=== PATIENT | female | born 1990 | race Caucasian/White ===

== ENCOUNTER 2016-09-24 10:39 | Emergency (ER) | payer OTHER ==
[2016-09-24] MEDS ORDERED: IOPAMIDOL 300 (61%) 150 ML VIAL IV ONE (10:40)
[2016-09-24 12:05] LABS: ABSOLUTE NEUTROPHIL COUNT 4.5 K/mm3 (1.8-7.7); BASO # 0.1 K/mm3 (0.0-0.2); BASO % 0.7 % (0.2-1.0); EOS # 0.1 (0.0-0.5); EOS % 0.8 % (0.9-2.9); HEMATOCRIT 39.3 % (37.0-47.0); HEMOGLOBIN 12.8 gm/l (12.0-16.0); IMM NEUT% 0.3 % (0-1); LYMPH # 2.2 (1.0-4.8); LYMPH % 29.8 % (15-45); MEAN CELL VOLUME 89.3 fl (81.0-99.0); MEAN CORPUSCULAR HEMOGLOBIN 29.1 pg (27.0-31.0); MEAN CORPUSCULAR HGB CONC 32.6 g/dl (33.0-37.0); MEAN PLATELET VOLUME 9.1 fl (7.4-10.4); MONO # 0.6 (0.0-0.8); MONO % 7.7 % (4-12); NEUT % 60.7 % (43-75); PLATELET COUNT 248 K/mm3 (130-400); RED CELL DISTRIBUTION WIDTH 13.2 % (11.5-14.5)
[2016-09-24 12:16] LABS: HCG,QUALITATIVE URINE NEGATIVE
[2016-09-24 12:22] LABS: ALB/GLOB RATIO 1.5 (>1.0); ALBUMIN 4.4 gm/dL (3.5-5.7); CALCIUM 9.7 mg/dL (8.6-10.3)
--- NOTE | 2016-09-24 13:16 | CT ---
Exam: CT abdomen and pelvis with contrast COMPARISON: 03/12/2008 and pelvic ultrasound 09/01/2014 INDICATION: No bowel movement for 10 days. TECHNIQUE: CT examination of the abdomen and pelvis was obtained following the administration 100 mL Isovue-300 intravenous contrast. FINDINGS: There is a moderate amount of stool throughout the colon. There is no evidence of fecal reaction within the rectum. There is no bowel obstruction, free air or free intraperitoneal fluid. The appendix is not identified, however there are no secondary findings of acute appendicitis. There is a 4.4 cm right ovarian cyst which is chronic. Left ovary within normal limits, with a dominant follicle measuring 2.1 cm. Uterus within normal limits. There is no pelvic lymphadenopathy or fluid collection. The liver, spleen, pancreas, kidneys, adrenal glands and gallbladder are unremarkable. Lung bases are clear. There is exaggeration of the normal lumbar lordosis. No worrisome lytic or blastic osseous lesion is identified. IMPRESSION: 1. Moderate amount of stool throughout the colon, compatible with history of constipation. There is no fecal impaction within the rectum. There is no bowel obstruction. 2. Chronic 4.4 cm right ovarian cyst. 3. Otherwise unremarkable CT examination of the abdomen and pelvis. Report was uploaded to the EMR at 1312 hours 09/24/2016.
== END 2016-09-24 14:03 | disposition home or self-care (01) ==
LOC: ED 10:39
DX: K59.00 Constipation, unspecified (principal)
CPT/HCPCS: 83690; 81025; 85025; 80053; 74177; 99284 ×2; Q9967